=== PATIENT | male | born 2000 | race Caucasian/White ===

== ENCOUNTER 2022-07-25 17:30 | Emergency (ER) | payer OTHER ==
[~2022-07-25] VITALS: Ht 185.4 cm; Wt 61.4 kg
[2022-07-25] MEDS ORDERED: ESTR-95 PO (17:41)
[2022-07-25] MEDS ORDERED: PROG100C24 PO (17:41)
[2022-07-25] MEDS ORDERED: MORPHINE SULFATE 4 MG/ML SYRINGE IVP ONE (17:45)
[2022-07-25] MEDS ORDERED: ONDANSETRON HCL 4 MG/2 ML VIAL ONE (17:59)
[2022-07-25] MEDS ORDERED: FentaNYL CITRATE PF 100 MCG/2 ML VIAL IVP ONE (18:00)
[2022-07-25] MEDS ORDERED: NALOXONE HCL 1 MG/ML 2 ML SYRINGE ONE (18:00)
[2022-07-25] MEDS ORDERED: FLUMAZENIL 0.1 MG/ML 5 ML VIAL IVP ONE (18:00)
[2022-07-25] MEDS ORDERED: ONDANSETRON HCL 4 MG/2 ML VIAL IVP ONE (18:00)
[2022-07-25] MEDS ORDERED: MIDAZOLAM HCL 5 MG/ML VIAL IVP ONE ×2 (18:00→18:45)
[2022-07-25 20:11] VITALS: BP 123/89
== END 2022-07-25 20:23 | disposition home or self-care (01) ==
LOC: EMS 17:34
DX: S43.004A Unspecified dislocation of right shoulder joint, initial encounter (principal); V00.131A Fall from skateboard, initial encounter; Y93.89 Activity, other specified; Y92.89 Other specified places as the place of occurrence of the external cause; Y99.8 Other external cause status
CPT/HCPCS: 99285; 23650; 96374; 96375; 73030; 99152; J3010; J2270; J2405; J2250; J2310; J3490